=== PATIENT | female | born 1980 | race Caucasian/White ===

== ENCOUNTER 2018-06-10 20:02 | Emergency (ER) | payer OTHER ==
[~2018-06-10] VITALS: Ht 167.6 cm; Wt 76.2 kg
[~2018-06-10 20:02] MED LIST: ADDERALL XR 2020 MG PO; AMPHETAMINE SAL20 M1 PO; BUSPAR15 MG PO; CEPHALEXIN 500500 M1 PO; CIPROFLOXACIN500 M1 PO; CLINDAMYCIN HC150 MG OR; CLONAZEPAM; CLONAZEPAM 0.50.5 M1 PO; DARVOCET-N 1001 EACH PO; DESYREL100 MG; DESYREL150 MG PO; FLAGYL500 MG PO; FLEXERIL PO; KEFLEX500 MG PO; KLONOPIN0.5 MG PO; LATUDA20 MG PO; LEVOTHROID75 MCG; LEVOTHYROXINE PO; LITHIUM CARBON300 M3 PO; LODINE200 MG PO; MEDROLDOSEPACK PO; MOBIC7.5 M1 PO; NAPROSYN500 M1 PO; NAPROSYN500 MG PO; NEURONTIN 300300 M1; NORCO 5-325 TA1 EACH PO; PEPCID40 MG PO; POTASSIUM20 PO; PREDNISONE 20 M20 M1 PO; RISPERDONE; ROBAXIN 750 MG750 M1 PO; ROBAXIN 750 MG750 MG PO; RONDEC-DM SYRU120 ML PO; STRATTERA40 MG PO; STRATTERA80 MG PO; TOPAMAX 100 MG100 MG PO; TRAMADOL 50 MG50 MG PO; TYLENOL WITH CO1 TA1 PO; ULTRAM 50MG TAB50 MG PO; VALTREX1000 MG PO; VICODIN 5-5001 EACH PO; VISTARIL 25 MG25 M1 OR; XANAX 0.25 MG0.25 MG; ZOFRAN4 MG PO; ZOVIRAX 5% OINT15 GM TP; ZPAK PO
[2018-06-10] MEDS ORDERED: LEVOTHYROXINE (20:09)
[2018-06-10 20:31] LABS: URINE BILIRUBIN NEGATIVE (Negative); URINE BLOOD NEGATIVE (Negative); URINE CLARITY TURBID; URINE COLOR YELLOW; URINE GLUCOSE-RANDOM NEGATIVE (Negative); URINE KETONES TRACE (Negative); URINE LEUKOCYTES-REFLEX NEGATIVE (Negative); URINE PROTEIN TRACE (Negative); URINE SPECIFIC GRAVITY >= 1.030 (1.005-1.030)
[2018-06-10 20:32] LABS: URINE NITRITE-REFLEX POSITIVE (Negative)
[2018-06-10 20:39] LABS: SQUAMOUS >10 Many /LPF (0-3)
[2018-06-10 20:40] LABS: AMP/METHAMP POSITIVE (Negative); BACTERIA-REFLEX >30 Many /HPF (None Seen); BARBITURATES Negative (Negative); BENZODIAZEPINES POSITIVE (Negative); COCAINE Negative (Negative); METHADONE Negative (Negative); MUCUS 4-6 Moderate strn/LPF (None Seen); OPIATES Negative (Negative); PCP Negative (Negative); THC POSITIVE (Negative); URINE WBC-REFLEX 0-5 Rare /HPF (0-5)
[2018-06-10 20:47] LABS: CASTS None Seen /LPF (None Seen); URINE RBC None Seen /HPF (0-2)
[2018-06-10 20:56] LABS: URIC ACID CRYSTALS >10 Many /LPF (None Seen)
[2018-06-10] MEDS ORDERED: DOXYCYCLINE 10100 MG PO (21:21)
[2018-06-10] MEDS ORDERED: TRIAMCINOLONE A80 G2 TOP (21:21)
[2018-06-10] MEDS ORDERED: PERCOCET 7.5-31 EACH PO (21:22)
[2018-06-10 21:30] VITALS: BP 134/84
[2018-06-13 18:07] LABS: HSV 1 DNA Positive (Negative); HSV 2 DNA Negative (Negative)
== END 2018-06-10 21:31 | disposition home or self-care (01) ==
LOC: M.ERS 20:02
PROVIDERS: Emergency Medicine
DX: N76.0 Acute vaginitis (principal); F17.210 Nicotine dependence, cigarettes, uncomplicated; F41.9 Anxiety disorder, unspecified; Z88.0 Allergy status to penicillin; Z88.1 Allergy status to other antibiotic agents; Z88.8 Allergy status to other drugs, medicaments and biological substances